=== PATIENT | male | born 1945 | race Hispanic/Latino ===

== ENCOUNTER → 2020-10-06 | Outpatient (CLI) | payer OTHER | END | disposition home or self-care (01) | LOC: OIH 15:46 | PROVIDERS: ATTEND Family Medicine | DX: I12.9 Hypertensive chronic kidney disease with stage 1 through stage 4 chronic kidney disease, or unspecified chronic kidney disease (principal) | CPT/HCPCS: 71046 ==

== ENCOUNTER → 2020-10-29 | Outpatient (CLI) | payer OTHER | END | disposition home or self-care (01) | LOC: RAH 10:28 | PROVIDERS: ATTEND Podiatrist | DX: M20.11 Hallux valgus (acquired), right foot (principal); M20.12 Hallux valgus (acquired), left foot; M20.41 Other hammer toe(s) (acquired), right foot; M20.42 Other hammer toe(s) (acquired), left foot; E11.51 Type 2 diabetes mellitus with diabetic peripheral angiopathy without gangrene | CPT/HCPCS: 93922 ==

== ENCOUNTER → 2024-12-11 | Outpatient (CLI) | payer OTHER ==
--- NOTE | 2024-12-12 04:41 | HMCIMG ---
EXAM: CR Abdomen, 1 view. CLINICAL HISTORY: Generalized abdominal pain. Constipation. COMPARISON: None provided. FINDINGS: Nonobstructed nonspecific bowel gas pattern. A component of moderate constipation is present in the colon. No free air is evident. No abnormal calcification. No aggressive appearing osseous lesion. Mild dextroscoliosis. Degenerative osseous changes. IMPRESSION: No acute process. A component of moderate constipation is present in the colon. /[place]
== END | disposition home or self-care (01) ==
LOC: RAH 15:45
PROVIDERS: ATTEND Internal Medicine
DX: K59.00 Constipation, unspecified (principal); R10.84 Generalized abdominal pain
CPT/HCPCS: 74018